=== PATIENT | male | born 1980 | race Two or more races ===

== ENCOUNTER 2017-09-30 11:49 | Emergency (ER) | payer SELFPAY ==
[~2017-09-30] VITALS: Ht 160 cm; Wt 81.6 kg
[2017-09-30 12:06] VITALS: BP 119/70
--- NOTE | 2017-09-30 12:24 | PHYS DOC ---
Past History Past Medical History: No Pertinent History Past Surgical History: No Surgical History Alcohol Use: None Drug Use: None Adult General Chief Complaint Chief Complaint: DENTAL PROBLEM HPI HPI 36-year-old male who is Thai-speaking only presents with left lower tooth pain. There is a woman who accompanies him who speaks Qatari and provides translation. He states the tooth been hurting last few days, but today it is gone so bad he is difficulty sleeping. He knows he has to decay. He has an appointment for next week at the local dental school to have the tooth removed. He further complains of swelling of the left lower jaw. He denies fever or chills. He has had no drainage around the tooth. Review of Systems Review of Systems Constitutional: Denies fever or chills [] Eyes: Denies change in visual acuity, redness, or eye pain [] HENT: Left lower quadrant dental pain[] Respiratory: Denies cough or shortness of breath [] Cardiovascular: No additional information not addressed in HPI [] GI: Denies abdominal pain, nausea, vomiting, bloody stools or diarrhea [] : Denies dysuria or hematuria [] Musculoskeletal: Denies back pain or joint pain [] Integument: Denies rash or skin lesions [] Neurologic: Denies headache, focal weakness or sensory changes [] Endocrine: Denies polyuria or polydipsia [] All other systems were reviewed and found to be within normal limits, except as documented in this note. Physical Exam Physical Exam Constitutional: Well developed, well nourished, no acute distress, non-toxic appearance. [] HENT: Normocephalic, atraumatic, bilateral external ears normal, oropharynx moist, extensive decay of left lower molar. Erythema surrounding gums concerning for infection. No obvious pus pocket to drain. [] Eyes: PERRLA, EOMI, conjunctiva normal, no discharge. [] Neck: Normal range of motion, no tenderness, supple, no stridor. [] Cardiovascular:Heart rate regular rhythm, no murmur [] Lungs & Thorax: Bilateral breath sounds clear to auscultation [] Abdomen: Bowel sounds normal, soft, no tenderness, no masses, no pulsatile masses. [] Skin: Warm, dry, no erythema, no rash. [] Back: No tenderness, no CVA tenderness. [] Extremities: No tenderness, no cyanosis, no clubbing, ROM intact, no edema. [] Neurologic: Alert and oriented X 3, normal motor function, normal sensory function, no focal deficits noted. [] Psychologic: Affect normal, judgement normal, mood normal. [] Current Patient Data Vital Signs Vital Signs Date Time Temp Pulse Resp B/P (MAP) Pulse Ox O2 Delivery O2 Flow Rate FiO2 09/30/17 12:06 99.3 79 22 95 Room Air EKG EKG [] Radiology/Procedures Radiology/Procedures [] Course & Med Decision Making Course & Med Decision Making Pertinent Labs and Imaging studies reviewed. (See chart for details) I am concerned the patient may have an infection in addition to his cracked tooth. I will treat him with clindamycin for 7 days. I will also provide him [place] 5/325 for severe pain to help him sleep. [] Dragon Disclaimer Dragon Disclaimer This electronic medical record was generated, in whole or in part, using a voice recognition dictation system. Departure Departure: Referrals: PCP,ANNE-MARIE (PCP) Scripts Hydrocodone Bit/Acetaminophen (NORCO 5-325 TABLET) 1 Each Tablet 1 TAB PO PRN Q6HRS PRN for PAIN, #12 TAB 0 Refills Prov: MIKY BROWN DO 09/30/17 MIKY BROWN DO September 30, 2017 12:24
[2017-09-30] MEDS ORDERED: HYDR-971 PO (12:26)
== END 2017-09-30 12:36 | disposition home or self-care (01) ==
LOC: ER 11:49
DX: K08.89 Other specified disorders of teeth and supporting structures (principal); R22.0 Localized swelling, mass and lump, head
CPT/HCPCS: 99283

== ENCOUNTER 2017-10-27 13:38 | Emergency (ER) | payer SELFPAY ==
[~2017-10-27 13:38] MED LIST: HYDR-971 PO
[2017-10-27 13:53] VITALS: BP 122/73
[2017-10-27] MEDS: HYDROcodone/APAP 5/325MG 1 TAB TABLET PO ONE (14:03)
[2017-10-27] MEDS ORDERED: PENI500T PO (14:06)
[2017-10-27] MEDS ORDERED: NAPR-683 PO (14:06)
[2017-10-27] MEDS ORDERED: TRAM-48 PO (14:06)
--- NOTE | 2017-10-27 14:06 | PHYS DOC ---
Past History Past Medical History: No Pertinent History Past Surgical History: No Surgical History Alcohol Use: None Drug Use: None Adult General Chief Complaint Chief Complaint: DENTAL PROBLEM HPI HPI 37-year-old nonsmoking Romanian speaking male patient complaining of left lower jaw and tooth pain for the last few days that getting better with over-the- counter medication. Patient had the same problem several months ago but was not able to follow-up with her dentist because of financial problem. Patient has some appointment with the dentist at dental school next month. Patient denies fever and chills, swallowing problem, nausea and vomiting. Patient rated his pain 9/10. Review of Systems Review of Systems Constitutional: Denies fever or chills [] Eyes: Denies change in visual acuity, redness, or eye pain [] HENT: Denies nasal congestion or sore throat, reports dental pain. [] Respiratory: Denies cough or shortness of breath [] Cardiovascular: No additional information not addressed in HPI [] GI: Denies abdominal pain, nausea, vomiting, bloody stools or diarrhea [] : Denies dysuria or hematuria [] Musculoskeletal: Denies back pain or joint pain [] Integument: Denies rash or skin lesions [] Neurologic: Denies headache, focal weakness or sensory changes [] Endocrine: Denies polyuria or polydipsia [] All other systems were reviewed and found to be within normal limits, except as documented in this note. Current Medications Current Medications Current Medications Medications (Trade) Dose Ordered Sig/Yong Start Time Stop Time Status Last Admin Dose Admin Acetaminophen/ Hydrocodone Bitart (Lortab 5/325) 1 tab 1X ONCE 10/27/17 14:00 10/27/17 14:01 Allergies Allergies Allergies Coded Allergies Type Severity Reaction Last Updated Verified No Known Drug Allergies 10/27/17 No Physical Exam Physical Exam Constitutional: Well developed, well nourished, mild distress, non-toxic appearance. [] HENT: Normocephalic, atraumatic, bilateral external ears normal, oropharynx moist, no oral exudates, nose normal, left lower molar #3 with remaining root only and tenderness without sign of abscess. [] Eyes: PERRLA, EOMI, conjunctiva normal, no discharge. [] Neck: Normal range of motion, no tenderness, supple, no stridor. [] Cardiovascular:Heart rate regular rhythm, no murmur [] Lungs & Thorax: Bilateral breath sounds clear to auscultation [] Neurologic: Alert and oriented X 3, normal motor function, normal sensory function, no focal deficits noted. [] Psychologic: Affect normal, judgement normal, mood normal. [] Current Patient Data Vital Signs Vital Signs Date Time Temp Pulse Resp B/P (MAP) Pulse Ox O2 Delivery O2 Flow Rate FiO2 10/27/17 13:53 98.5 75 18 97 Room Air EKG EKG [] Radiology/Procedures Radiology/Procedures [] Course & Med Decision Making Course & Med Decision Making discharge: I've spoken with the patient and/or caregivers. I've explained the patient's condition, diagnosis and treatment plan based on information available to me at this time. I've answered the patient's and/or caregivers questions and addressed any concerns. The patient and/or caregivers have a good understanding the patient's diagnosis, condition and treatment plan as can be expected at this point. Vital signs have been stabilized. The patient's condition is stable for discharge from the emergency department. The patient will pursue further outpatient evaluation with her primary care provider or other designated consulting physician as outlined in the discharge instructions. Patient and/or caregivers are agreeable to this plan of care and follow-up instructions have been explained in detail. The patient and/or caregivers have received these instructions in written format and expressed understanding of these discharge instructions. The patient and her caregivers are aware that if any significant change in condition or worsening of symptoms should prompt him to immediately return to this of the closest emergency department. If an emergent department is not readily available I would encourage him to call 911. Vandana Disclaimer Vandana Disclaimer This electronic medical record was generated, in whole or in part, using a voice recognition dictation system. Departure Departure: Impression: Primary Impression: Dentalgia Additional Impression: Dental caries into pulp Disposition: HOME, SELF-CARE (At 1405) Condition: STABLE Referrals: PCPANNE-MARIE (PCP) Patient Instructions: Dental Caries, Toothache-Brief Additional Instructions: Follow-up with your dentist appointment Return to ER if not getting better Scripts Naproxen (NAPROSYN) 500 Mg Tablet 1 TAB PO BID, #30 TAB 1 Refill Prov: WILLIAM JERNIGAN MD 10/27/17 Tramadol Hcl (ULTRAM) 50 Mg Tablet 50 MG PO PRN Q6HRS PRN for PAIN, #14 TAB Prov: WILLIAM JERNIGAN MD 10/27/17 Penicillin V Potassium (PENICILLIN V POTASSIUM) 500 Mg Tablet 1 TAB PO QID, #56 TAB Prov: WILLIAM JERNIGAN MD 10/27/17 Problem Qualifiers WILLIAM JERNIGAN MD Oct 27, 2017 14:06
== END 2017-10-27 14:23 | disposition home or self-care (01) ==
LOC: ER 13:38
DX: K02.9 Dental caries, unspecified (principal)
CPT/HCPCS: 99283